=== PATIENT | male | born 1950 | race Caucasian/White ===

== ENCOUNTER 2024-10-18 10:34 | Outpatient (OUT) | payer OTHER, SELFPAY ==
--- NOTE | 2024-10-18 | XR_ITS ---
[facility] [place] [id number] Patient Name: EMILE RAYMOND MRN: [id number] date: 1950 Sex: M Assigned Patient Location: [facility] Current Patient Location: [facility] Accession/Order Number: [id number] Exam Date: 10/18/2024 11:12 Report Date: 10/18/2024 11:13 At the request of: MELISSA GARCIA Procedure: XR shoulder RT min 2V RIGHT SHOULDER - - 4 views CLINICAL HISTORY: M25.511 Right shoulder pain COMPARISON: None. FINDINGS: Mild degenerative changes involving the AC and glenohumeral joint narrowing of subacromial space suggestive of chronic rotator cuff pathology. XR/XR shoulder RT min 2V IMPRESSION: MILD DEGENERATIVE CHANGES INVOLVING THE RIGHT SHOULDER WITH EVIDENCE OF CHRONIC ROTATOR CUFF PATHOLOGY. Impression dictated by: Saulo Gonzales Jr., D.O. 10/18/2024 11:13 AM Dictation Location: [place] [address] Electronically authenticated by: [id number] Y Date: 10/18/2024 11:13
--- OUTSIDE RECORDS SUMMARY | 2024-10-18 10:36 | XMS_ITS | Encounter Summary ---
Author Organization [facility] Address [address] [place] [address] Phone Care Team Providers Care Software Writer Name Role Phone Teofilo Pichardo DO Primary Care Provider +1 -[phone] Encounter Details Date Type Department Care Team (Late st Contact Info) Description 07/18/[address] [facility] [address] [place] [id number] Scanning, Generic Provider Social History Tobacco Use Types Packs/Day Years Used Date Smoking Tobacco: Former Cigarettes Smokeless Tobacco: Never Alcohol Use Standard Drinks/Week Comments Yes 0 (1 standard drink = 0.6 oz pur e alcohol) occassional Sex and Gender Information Value Date Recorded Sex Assigned at Not on file Legal Sex Male 2:21 AM EST Gender Identity Not on file Sexual Orientation Not on file documented as of this encounter Plan of Treatment Upcoming Encounters Date Type Department Care Team (Late Contact Info) Description 03/22/2025 2:50 PM EST Office Visit [facility] [address] [address] Alyssa Sanchez MD 703 [facility] 2, [facility] [address] [place] [address] documented as of this encounter Visit Diagnoses Not on filedocumented in this encounter Additional Health Concerns Assessment Noted Time A fall risk assessment has been complete d for the patient 02/01/2023 11:41 AM EST documented as of this encounter Care Teams Software Writer Relationship Specialty Start Date End Date Teofilo Pichardo DO [address] [facility] [place] [address] PCP - General 03/21/99 documented as of this encounter
--- OUTSIDE RECORDS SUMMARY | 2024-10-18 10:36 | XMS_ITS | Encounter Summary ---
Author Organization [facility] Address [address] [place] [address] Phone Care Team Providers Care Operations Planner Name Role Phone Teofilo Pichardo DO Primary Care Provider +1 -[phone] Encounter Details Date Type Department Care Team (Late st Contact Info) Description 10/09/2019 Orders Only [facility] [address] [place] [address] Conversion, Onbase Social History Tobacco Use Types Packs/Day Years Used Date Smoking Tobacco: Never Assessed Sex and Gender Information Value Date Recorded Sex Assigned at Not on file Legal Sex Male 2:21 AM EST Gender Identity Not on file Sexual Orientation Not on file documented as of this encounter Plan of Treatment Upcoming Encounters Date Type Department Care Team (Late st Contact Info) Description 03/22/2025 2:50 PM EST Office Visit [facility] [address] [address] Alyssa Sanchez MD 703 [facility] 2, [place] [place] [address] Scheduled Orders Name Type Priority Associated Diagnoses Orde r Schedule OUTSIDE LAB SCAN Lab Ordered: 10/09/2019 documented as of this encounter Visit Diagnoses Not on filedocumented in this encounter Care Teams Operations Planner Relationship Specialty Start Date End Date Teofilo Pichardo DO [address] [facility] [address] [place] [phone] PCP - General 03/21/99 documented as of this encounter
--- OUTSIDE RECORDS SUMMARY | 2024-10-18 10:36 | XMS_ITS | Encounter Summary ---
Author Organization [facility] Address [address] [place] [address] Phone Care Team Providers Care Varnish Filterer Name Role Phone Teofilo Pichardo DO Primary Care Provider +1 -[phone] Encounter Details Date Type Department Care Team (Late st Contact Info) Description 07/12/2019 Orders Only [facility] [address] [place] [address] Conversion, Onbase Social History Tobacco Use Types [...] Description 03/22/2025 2:50 PM EST Office Visit [facility] [address] [address] Alyssa Sanchez MD 703 [facility] 2, [address] [place] [address] Scheduled Orders Name Type Priority Associated Diagnoses Orde r Schedule OUTSIDE LAB SCAN Lab Ordered: 07/12/2019 documented as of this encounter Visit Diagnoses Not on filedocumented in this encounter Care Teams Varnish Filterer Relationship Specialty Start Date End Date Teofilo Pichardo DO [address] [facility] [place] [address] PCP - General 03/21/99 documented as of this encounter
--- OUTSIDE RECORDS SUMMARY | 2024-10-18 10:36 | XMS_ITS | Encounter Summary ---
Author Organization [facility] Address [address] [place] [address] Phone Care Team Providers Care Water Pump Operator Name Role Phone Teofilo Pichardo Primary Care Provider +1 [phone] Encounter Details Date Type Department Care Team (Late st Contact Info) Description 04/25/2023 Scanned Document [facility] [address] [place] [phone] Scanning, Generic Provider Social History Tobacco Use [...] Description 03/22/2025 2:50 PM EST Office Visit [facility] [address] [address] Alyssa Sanchez MD 703 [facility] 2, [address] [place] [address] Scheduled Orders Name Type Priority Associated Diagnoses Orde r Schedule PULMONARY FUNCTION TESTING PFT Ordered: 04/25/2023 documented as of this encounter Procedures Procedure Name Priority Date/Time Associated Diagnosis Comments OUTSIDE IMAGING SCAN 04/25/2023 documented in this encounter Results * OUTSIDE IMAGING SCAN (04/25/2023) Anatomical Region Laterality Modality Other Narrative 04/25/2023 Ordered by an unspecified provider. us Generic Provider Scanning OUTSIDE SCAN Final Result documented in this encounter Visit Diagnoses Not on filedocumented in this encounter Additional Health Concerns Assessment Noted Time A fall risk assessment has been complete d for the patient 02/01/2023 11:41 AM EST documented as of this encounter Care Teams Water Pump Operator Relationship Specialty Start Date End Date Teofilo Pichardo DO [address] [facility] [place] [address] PCP - General 03/21/99 documented as of this encounter
--- OUTSIDE RECORDS SUMMARY | 2024-10-18 10:36 | XMS_ITS | Encounter Summary ---
Author Organization [facility] Address [address] [place] [address] Phone Care Team Providers Care Associate Professor Of Kinesiology Name Role Phone Teofilo Pichardo DO Primary Care Provider +1 [phone] Encounter Details Date Type Department Care Team (Late st Contact Info) Description 04/21/2024 Scanned Document [facility] [address] [place] [phone] Scanning, Generic Provider Social History Tobacco Use [...] Description 03/22/2025 2:50 PM EST Office Visit [facility] [address] [address] Alyssa Sanchez MD 703 [facility] 2, [facility] [address] [place] [address] documented as of this encounter Visit Diagnoses Not on filedocumented in this encounter Additional Health Concerns Assessment Noted Time A fall risk assessment has been complete d for the patient 02/01/2023 11:41 AM EST documented as of this encounter Care Teams Associate Professor Of Kinesiology Relationship Specialty Start Date End Date Teofilo Pichardo DO [address] [facility] [place] [address] PCP - General 03/21/99 documented as of this encounter
--- OUTSIDE RECORDS SUMMARY | 2024-10-18 10:36 | XMS_ITS | Encounter Summary ---
Author Organization [facility] Address [address] [place] [address] Phone Care Team Providers Care Management Architect Name Role Phone Teofilo Pichardo DO Primary Care Provider +1 [phone] Encounter Details Date Type Department Care Team (Late st Contact Info) Description 07/18/2019 Orders Only [facility] [address] [place] [address] Conversion, Onbase Social History Tobacco Use Types [...] Description 03/22/2025 2:50 PM EST Office Visit [facility] [address] [address] Alyssa Sanchez MD 703 [facility] 2, [address] [place] [address] Scheduled Orders Name Type Priority Associated Diagnoses Orde r Schedule OUTSIDE LAB SCAN Lab Ordered: 07/18/2019 documented as of this encounter Visit Diagnoses Not on filedocumented in this encounter Care Teams Management Architect Relationship Specialty Start Date End Date Teofilo Pichardo DO [address] [facility] [place] [address] PCP - General 03/21/99 documented as of this encounter
--- OUTSIDE RECORDS SUMMARY | 2024-10-18 10:36 | XMS_ITS | Clinical Summary ---
Author Organization [facility] Address [address] [place] [address] Care Team Providers Care Sandwich And Drink Cart Operator Name Role Phone Teofilo Pichardo MD Primary Care Provider +1 -[phone] Allergies Active Allergy Reactions Criticality Noted Date Comments Pradeep Inhibitors Anaphylaxis,Dizziness High 10/10/2019 Dapagliflozin Low 01/19/2023 Other Reaction(s): Unknown Heparin Low 01/19/2023 Other Reaction(s): Unknown Other Reaction(s): Other (See Comments) Lisinopril 04/06/2023 Other Reaction(s): Swelling of Lip/Tongue/Throat Medications metoprolol tartrate (Lopressor) 100 MG tablet Take 100 mg by mouth in the morning and 100 mg in the evening. Active methIMAzole (Tapazole) 5 MG tablet Take 5 mg by mouth in the morning and 5 mg in the evening and 5 mg before bedtime. 3 Active magnesium oxide (Mag-Ox) 400 MG tablet 400 mg in the morning. Active Melatonin 10 MG capsule Take 10 mg by mouth at bedtime Active furosemide (Lasix) 40 MG tablet Take 40 mg by mouth in the morning. 3 Active Trulicity 0.75 MG/0.5ML solution pen-injector INJECT 1 SYRINGE SUBCUTANEOUSLY ONCE A WEEK 3 Active dilTIAZem CD (Cardizem CD) 180 MG 24 hr capsule Take 180 mg by mouth in the morning. 3 Active B Complex Vitamins (Vitamin B-Complex) tablet Take 1 tablet by mouth in the morning. Active Eliquis 5 MG tablet Take 5 mg by mouth in the morning and 5 mg before bedtime. 3 Active amiodarone (Pacerone) 200 MG tablet Take 200 mg by mouth in the morning. 3 Active Garlic 2 MG capsule Take by mouth Active methylPREDNISo lone (Medrol Dospak) 4 MG tablets PRN 4 Active Multiple Vitamin (MULTIVITAMIN ADULT PO) 1 tablet 4 Active Active Problems Problem Noted Date Diagnosed Date Adenomatous polyp of cecum 04/26/2023 Positive colorectal cancer screening using Colog uard test 03/10/2023 Family History Medical History Relation Name Comments Heart disease Brother 1 Ryder Hypertension Brother 2 Vernon Mental illness Sister Ashley Relation Name Status Comments Brother 1 Ryder Brother 2 Vernon Father Mother Sister Ashley Social History Tobacco Use Types Packs/Day Years Used Date Smoking Tobacco: Former Cigarettes 1 28 0 07/23/1969 - 07/23/1997 Smokeless Tobacco: Never Comments:Stopped smoking 12 years ago >10 years since last smoked Alcohol Use Standard Drinks/Week Comments Yes 1 (1 standard drink = 0.6 oz pur e alcohol) Once per 30-60 days. AUDIT-C Answer Date Recorded Q1: How often do you have a drink containing alc ohol? Monthly or less 03/09/2023 Q2: How many drinks containi ng alcohol do you have on a typical day when you are drinking? 1 or 2 03/09/2023 Q3: How often do you have si x or more drinks on one occasion? Less than monthly 03/09/2023 Sex and Gender Information Value Date Recorded Sex Assigned at Male 02/21/2023 5:07 PM EST Legal Sex Male 6:35 PM EDT Gender Identity Male 02/21/2023 5:07 PM EST Sexual Orientation Straight 02/21/2023 5: 07 PM EST Last Filed Vital Signs Vital Sign Reading Time Taken Comments Blood Pressure 130/74 03/10/2023 1:23 PM EST Pulse - - Temperature - - Respiratory Rate - - Oxygen Saturation - - Inhaled Oxygen Concentration - - Weight 115 kg (254 lb) 04/26/2023 9:16 AM EST Height 180.3 cm (5' 11 ) 04/26/2023 9:16 AM EST Body Mass Index 35.43 04/26/2023 9:16 AM EST Plan of Treatment Not on file Insurance [employer] Care Teams Sandwich And Drink Cart Operator Relationship Specialty Start Date End Date Teofilo Pichardo MD PCP - General Family Medicine 02/28/23
--- OUTSIDE RECORDS SUMMARY | 2024-10-18 10:36 | XMS_ITS | Encounter Summary ---
Author Organization [facility] Address [address] [place] [address] Phone Care Team Providers Care Laundry Superintendent Name Role Phone Teofilo Pichardo Primary Care Provider +1 -[phone] Encounter Details Date Type Department Care Team (Late st Contact Info) Description 05/19/2024 Scanned Document [place] [address] [place] [phone] Scanning, Generic Provider Social History Tobacco Use [...] Description 03/22/2025 2:50 PM EST Office Visit [facility] [address] [address] Alyssa Sanchez MD 703 [facility] 2, [address] [place] [address] documented as of this encounter Procedures Procedure Name Priority Date/Time Associated Diagnosis Comments OUTSIDE IMAGING SCAN 05/19/2024 documented in this encounter Results * OUTSIDE IMAGING SCAN (05/19/2024) Anatomical Region Laterality Modality Other Narrative 05/19/2024 Ordered by an unspecified provider. us Generic Provider Scanning OUTSIDE SCAN Final Result documented in this encounter Visit Diagnoses Not on filedocumented in this encounter Additional Health Concerns Assessment Noted Time A fall risk assessment has been complete d for the patient 02/01/2023 11:41 AM EST documented as of this encounter Care Teams Laundry Superintendent Relationship Specialty Start Date End Date Teofilo Pichardo DO [address] [facility] [place] [address] PCP - General 03/21/99 documented as of this encounter
--- OUTSIDE RECORDS SUMMARY | 2024-10-18 10:36 | XMS_ITS | Encounter Summary ---
Author Organization [facility] Address [address] [place] [address] Phone Care Team Providers Care Certified Juvenile Probation Officer Name Role Phone Teofilo Pichardo DO Primary Care Provider +1 -[phone] Encounter Details Date Type Department Care Team (Late st Contact Info) Description 07/13/2019 Orders Only [facility] [address] [place] [address] Conversion, Onbase Social History Tobacco Use Types [...] Description 03/22/2025 2:50 PM EST Office Visit [facility] [address] [address] Alyssa Sanchez MD 703 [facility] 2, [address] [place] [address] Scheduled Orders Name Type Priority Associated Diagnoses Orde r Schedule OUTSIDE LAB SCAN Lab Ordered: 07/13/2019 documented as of this encounter Visit Diagnoses Not on filedocumented in this encounter Care Teams Certified Juvenile Probation Officer Relationship Specialty Start Date End Date Teofilo Pichardo DO [address] [facility] [address] [place] [address] PCP - General 03/21/99 documented as of this encounter
--- OUTSIDE RECORDS SUMMARY | 2024-10-18 10:36 | XMS_ITS | Clinical Summary ---
Author Organization [facility] tem Address [id number] [place] [address] Care Team Providers Care Strap Stitcher Name Role Phone Kylee Teofilo Annabella PETERSEN Primary Care Provider +1 -[phone] Allergies Active Allergy Reactions Criticality Noted Date Comments Heparin Other (See Comments) Low 01/19/2023 Other Reaction(s): Unknown Lisinopril 10/10/2019 Medications THERAPEUTIC-M VITAMIN/MINERAL S 27-0.4 mg tablet TAKE 1 TABLET BY MOUTH IN THE MORNING 07/26/2019 Active amiodarone (PACERONE) 200 mg tablet Take 200 mg by mouth 2 (two) times a day. 08/03/2019 Active ELIQUIS 5 mg tablet Take 5 mg by mouth 2 (two) times a day. 07/30/2019 Active metoprolol tartrate (LOPRESSOR) 100 mg tablet Take 100 mg by mouth 2 (two) times a day. 07/30/2019 Active omeprazole (PriLOSEC) 40 mg capsule TAKE 1 CAPSULE BY MOUTH 30 MINUTES BEFORE MORNING MEAL ONCE DAILY 08/06/2019 Active aspirin 81 mg Take 81 mg by mouth 2 (two) times a week. Active GARLIC ORAL Take by mouth. 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 Hoarseness 10/10/2019 Encounters Date Type Department Care Team Description 08/22/2024 8:20 AM EDT - 08/22/2024 11:59 PM EDT Hospital Encounter [facility] - Radiology [address] [place] [address] Right shoulder pain, unspecified chronicity Discharge Disposition: Home 08/22/2024 Travel from Last 3 Months Social History Tobacco Use Types Packs/Day Years Used Date Smoking Tobacco: Never Smokeless Tobacco: Never Alcohol Use Standard Drinks/Week Comments Not Currently 0 (1 standard drink = 0.6 oz pur e alcohol) Childcare Answer Date Recorded Childcare Unknown 08/30/2018 Employment Answer Date Recorded Employment Unknown 08/30/2018 Purpose - Life Answer Date Recorded Purpose and direction in life Unknown Sex and Gender Information Value Date Recorded Sex Assigned at Not on file Legal Sex Male 11:22 AM EDT Gender Identity Not on file Sexual Orientation Not on file Last Filed Vital Signs Vital Sign Reading Time Taken Comments Blood Pressure 155/78 04/15/2023 4:55 PM EST Pulse 68 04/15/2023 4:55 PM EST Temperature 36.6 C (97.8 F) 04/15/2023 4:55 PM EST Respiratory Rate 18 04/15/2023 4:55 PM EST Oxygen Saturation 98% 04/15/2023 4:55 PM EST Inhaled Oxygen Concentration - - Weight 114.3 kg (252 lb) 04/15/2023 4:55 PM EST Height 180.3 cm (5' 11 ) 04/15/2023 4:55 PM EST Body Mass Index 35.15 04/15/2023 4:55 PM EST Plan of Treatment Health Maintenance Due Date Last Done Comments Depression Screening 1962 Tobacco Screening 1962 DTaP,Tdap and Td Vaccines (1 - Tdap) 1970 Zoster (Shingles) Vaccine (1 of 2) 2001 Fall Risk Screening 2016 Adult BMI Screening 04/15/2024 04/15/2023 Influenza Vaccine 11/19/2024 Medical Devices Not on file Procedures Procedure Name Priority Date/Time Associated Diagnosis Comments XR SHOULDER RT MIN 2 VWS Routine 08/22/2024 8:43 AM EDT Right shoulder pain, unspecified chronicity from Last 3 Months Results * X-ray shoulder right minimum 2 views (08/22/2024 8:43 AM EDT) Anatomical Region Laterality Modality MSK, Upper Extremities, Shoulder Right Computed Radiography 08/24/2024 7:33 AM EDT Narrative 08/24/2024 7:34 AM EDT XR SHOULDER RT MIN 2 VWS History: Right shoulder pain, unspecified chronicity Findings: There is grossly no fracture, dislocation, or destructive lesion. Impression: * No acute findings. 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 Impression: * No acute findings. Mild osteoarthritis glenohumeral joint with earlyosteophyte inferiorly humerus head Consider MR if you suspect occult internal derangement Finalized by Jai Seo MD on 08/24/2024 7:34 AM Teofilo Pichardo DO IMG DIAGNOSTIC IMAGING OR DERABLES Final Result from Last 3 Months Insurance MEDICARE [facility] Care Teams Strap Stitcher Relationship Specialty Start Date End Date Teofilo Pichardo DO [address] [place] [address] PCP - General Family Medicine 08/22/24
--- OUTSIDE RECORDS SUMMARY | 2024-10-18 10:36 | XMS_ITS | Encounter Summary ---
Author Organization [facility] Address [address] [place] [address] Phone Care Team Providers Care Cap Coverer Name Role Phone Teofilo Pichardo DO Primary Care Provider +1 -[phone] Encounter Details Date Type Department Care Team (Late st Contact Info) Description 08/06/2019 Orders Only [facility] [address] [place] [address] Conversion, Onbase Social History Tobacco Use Types [...] Description 03/22/2025 2:50 PM EST Office Visit [facility] [address] [address] Alyssa Sanchez MD 703 [facility] 2, [address] [place] [address] Scheduled Orders Name Type Priority Associated Diagnoses Orde r Schedule OUTSIDE LAB SCAN Lab Ordered: 08/06/2019 documented as of this encounter Visit Diagnoses Not on filedocumented in this encounter Care Teams Cap Coverer Relationship Specialty Start Date End Date Teofilo Pichardo DO [address] [place] [facility] [place] [address] PCP - General 03/21/99 documented as of this encounter
--- OUTSIDE RECORDS SUMMARY | 2024-10-18 10:36 | XMS_ITS | Encounter Summary ---
Author Organization [facility] Address [address] [place] [address] Phone Care Team Providers Care Gluer And Slicer Hand Name Role Phone Teofilo Pichadro DO Primary Care Provider +1 -[phone] Encounter Details Date Type Department Care Team (Late st Contact Info) Description 07/02/2019 Orders Only [facility] [address] [place] [address] Conversion, Onbase Social History Tobacco Use Types [...] Description 03/22/2025 2:50 PM EST Office Visit [facility] [address] [address] Alyssa Sanchez MD 703 [facility] 2, [address] [place] [address] Scheduled Orders Name Type Priority Associated Diagnoses Orde r Schedule OUTSIDE LAB SCAN Lab Ordered: 07/02/2019 documented as of this encounter Visit Diagnoses Not on filedocumented in this encounter Care Teams Gluer And Slicer Hand Relationship Specialty Start Date End Date Teofilo Pichardo DO [address] [facility] [address] [place] [address] PCP - General 03/21/99 documented as of this encounter
--- OUTSIDE RECORDS SUMMARY | 2024-10-18 10:36 | XMS_ITS | Encounter Summary ---
Author Organization [facility] Address [address] [place] [address] Phone Care Team Providers Care Demolition Engineer Name Role Phone Teofilo Pichardo Primary Care Provider +1 -[phone] Encounter Details Date Type Department Care Team (Late st Contact Info) Description 04/20/2024 Scanned Document [facility] [address] [place] [phone] Scanning, Generic Provider Social History Tobacco Use [...] Description 03/22/2025 2:50 PM EST Office Visit [facility] [address] [address] Alyssa Sanchez MD [address] [facility] 2, [address] [place] [address] documented as of this encounter Procedures Procedure Name Priority Date/Time Associated Diagnosis Comments OUTSIDE IMAGING SCAN 04/20/2024 documented in this encounter Results * OUTSIDE IMAGING SCAN (04/20/2024) Anatomical Region Laterality Modality Other Narrative 04/20/2024 Ordered by an unspecified provider. us Generic Provider Scanning OUTSIDE SCAN Final Result documented in this encounter Visit Diagnoses Not on filedocumented in this encounter Additional Health Concerns Assessment Noted Time A fall risk assessment has been complete d for the patient 02/01/2023 11:41 AM EST documented as of this encounter Care Teams Demolition Engineer Relationship Specialty Start Date End Date Teofilo Pichardo DO [address] [facility] [place] [address] PCP - General 03/21/99 documented as of this encounter
--- OUTSIDE RECORDS SUMMARY | 2024-10-18 10:36 | XMS_ITS | Encounter Summary ---
Author Organization [facility] Address [address] [place] [address] Phone Care Team Providers Care Chin Strap Cutter Name Role Phone Teofilo Pichardo DO Primary Care Provider +1 [phone] Encounter Details Date Type Department Care Team (Late st Contact Info) Description 08/28/2019 Orders Only [facility] [address] [place] [address] Conversion, Onbase Social History Tobacco Use Types [...] Description 03/22/2025 2:50 PM EST Office Visit [facility] [address] [address] Alyssa Sanchez MD 703 [facility] 2, [address] [place], [place] [phone] Scheduled Orders Name Type Priority Associated Diagnoses Orde r Schedule OUTSIDE LAB SCAN Lab Ordered: 08/28/2019 OUTSIDE LAB SCAN Lab Ordered: 08/28/2019 documented as of this encounter Visit Diagnoses Not on filedocumented in this encounter Care Teams Chin Strap Cutter Relationship Specialty Start Date End Date Teofilo Pichardo DO [address] [facility] [place] [phone] PCP - General 03/21/99 documented as of this encounter
--- OUTSIDE RECORDS SUMMARY | 2024-10-18 10:36 | XMS_ITS | Encounter Summary ---
Author Organization [facility] Address [address] [place] [address] Phone Care Team Providers Care Therapeutic Consultant Name Role Phone Teofilo Pichardo DO Primary Care Provider +1 [phone] Encounter Details Date Type Department Care Team (Late st Contact Info) Description 07/25/2019 Orders Only [facility] [address] [place] [address] Conversion, Onbase Social History Tobacco Use Types [...] Description 03/22/2025 2:50 PM EST Office Visit [facility] [address] [address] Alyssa Sanchez MD 703 [facility] 2, [address] [place] [address] Scheduled Orders Name Type Priority Associated Diagnoses Orde r Schedule OUTSIDE LAB SCAN Lab Ordered: 07/25/2019 documented as of this encounter Visit Diagnoses Not on filedocumented in this encounter Care Teams Therapeutic Consultant Relationship Specialty Start Date End Date Teofilo Pichardo DO [address] [facility] [place] [phone] PCP - General 03/21/99 documented as of this encounter
--- OUTSIDE RECORDS SUMMARY | 2024-10-18 10:36 | XMS_ITS | Encounter Summary ---
Author Organization [facility] Address [address] [place] [address] Phone Care Team Providers Care Desktop Support Consultant Name Role Phone Teofilo Pichardo Primary Care Provider +1 [phone] Reason for Visit * Reason Comments Med Refill Encounter Details Date Type Department Care Team (Late st Contact Info) Description 07/24/[address] [address] Alyssa Sanchez MD 703 [facility] 2, [address] [address] Benign essential hypertension; Paroxysmal atrial fibrillation (Multi) Social History Tobacco Use Types Packs/Day Years [...] Description 03/22/2025 2:50 PM EST Office Visit [address] [address] Alyssa Sanchez MD 703 [facility] 2, [address] [address] documented as of this encounter Visit Diagnoses Diagnosis Benign essential hypertension Essential hypertension, benign Paroxysmal atrial fibrillation (Multi) Atrial fibrillation documented in this encounter Additional Health Concerns Assessment Noted Time A fall risk assessment has been complete d for the patient 02/01/2023 11:41 AM EST documented as of this encounter Care Teams Desktop Support Consultant Relationship Specialty Start Date End Date Teofilo Pichardo DO [address] [place] [address] PCP - General 03/21/99 documented as of this encounter
--- OUTSIDE RECORDS SUMMARY | 2024-10-18 10:36 | XMS_ITS | Encounter Summary ---
Author Organization [facility] Address [id number] [place] [address] Care Team Providers Care Ladle Pourer Name Role Phone Teofilo Pichardo DO Primary Care Provider [phone] [phone] Encounter Details Date Type Department Care Team (Late st Contact Info) Description 10/15/2021 Orders Only [facility] [address] [place] [phone] External, Scanning Provider Social History Tobacco Use Types Packs/Day [...] as of this encounter Plan of Treatment Not on file documented as of this encounter Visit Diagnoses Not on filedocumented in this encounter Care Teams Ladle Pourer Relationship Specialty Start Date End Date Teofilo Pichardo DO [address] [place] [address] PCP - General Family Medicine 08/22/24 documented as of this encounter
--- OUTSIDE RECORDS SUMMARY | 2024-10-18 10:36 | XMS_ITS | Clinical Summary ---
Author Organization [facility] Address [address] [place] [address] Phone Care Team Providers Care Centerless Grinder Name Role Phone MattcemdreTeofilo salcido Primary Care Provider +1 -[phone] Allergies Active Allergy Reactions Criticality Noted Date Comments Pradeep Inhibitors Anaphylaxis High 01/19/2023 Dapagliflozin Unknown Low 01/19/2023 Heparin Unknown Low 01/19/2023 Medications acetaminophen (Tylenol) 500 mg tablet Take 1 tablet (500 mg) by mouth every 4 hours if needed. 0 Active fish oil concentrate (Memphis-3) 120-180 mg capsule Take 1 capsule (1 g) by mouth once daily. 0 Active Trulicity 0.75 mg/0.5 mL pen injector Inject 0.75 mg under the skin 1 (one) time per week. Active multivitamin (Multiple Vitamins) tablet Take 1 tablet by mouth once daily. 0 Active omeprazole (PriLOSEC) [address] capsule 1 capsule (40 mg). Take 1 capsule 3 times a week 2 Active vitamin B complex (Vitamins B Complex) tablet Take 1 tablet by mouth once daily. Active dilTIAZem CD (Cardizem CD) 180 mg 24 hr capsuleIndication s:Benign essential hypertension,Atri al fibrillation, unspecified type (Multi) Take 1 capsule (180 mg) by mouth once daily. 90 capsule 3 4 01/13/20 25 Active Eliquis 5 mg tabletIndications :Paroxysmal atrial fibrillation (Multi) Take 1 tablet (5 mg) by mouth 2 times a day. 180 tablet 3 4 02/07/20 25 Active methIMAzole (Tapazole) 5 mg tabletIndications :Hyperthyroidism Take 1 tablet (5 mg) by mouth 2 times a day. 180 tablet 3 4 02/09/20 25 Active metoprolol tartrate (Lopressor) 100 mg tabletIndications :Benign essential hypertension,Paro xysmal atrial fibrillation (Multi) Take 1 tablet by mouth twice daily 180 tablet 5 Active amiodarone (Pacerone) 200 mg tabletIndications :Paroxysmal atrial fibrillation (Multi) Take 1 tablet by mouth once daily 90 tablet 1 5 Active furosemide (Lasix) 20 mg tablet Take 1 tablet (20 mg) by mouth 2 times daily (morning and late afternoon). Active FERROUS SULFATE ORAL Take by mouth. Active Active Problems Problem Noted Date Diagnosed Date Former smoker 07/26/2023 Class 2 obesity without seri ous comorbidity with body mass index (BMI) of 35.0 to 35.9 in adult 02/01/2023 High risk medication use 02/01/2023 Atrial fibrillation (Multi) 01/19/2023 Benign essential hypertension 01/19/2023 CKD (chronic kidney disease), stage III (Multi) 01/19/2023 COVID-19 01/19/2023 Diabetes (Multi) 01/19/2023 Obstructive sleep apnea syndrome 01/19/2023 Encounters Date Type Department Care Team Description 08/09/[address] [address] Shereen Roman RN Results 08/08/2024 10:10 AM EDT Office Visit [address] [address] Alyssa Sanchez MD Paroxysmal atrial fibrillation (Multi); High risk medication use; Benign essential hypertension; Stage 3 chronic kidney disease, unspecified whether stage 3a or 3b CKD (Multi); Obstructive sleep apnea syndrome; Former smoker; Class 2 obesity without serious comorbidity with body mass index (BMI) of 35.0 to 35.9 in adult, unspecified obesity type 08/08/2024 Orders Only [facility] [address] [place] [address] Alyssa Sanchez MD 08/08/2024 Travel 08/05/[address] [address] Alyssa Sanchez MD Paroxysmal atrial fibrillation (Multi) 07/24/[address] [address] Alyssa Sanchez MD Benign essential hypertension; Paroxysmal atrial fibrillation (Multi) 07/23/[address] [address] Alyssa Sanchez MD Benign essential hypertension; Paroxysmal atrial fibrillation (Multi) from Last 3 Months Immunizations Immunization Administration Dates Next Due Pneumococcal conjugate vaccine, 13-valent (PREVN AR 13) 11/14/2019 Pneumococcal polysaccharide vaccine, 23-valent, age 2 years and older (PNEUMOVAX 23) 11/25/2020 Social History Tobacco Use Types Packs/Day Years Used Date Smoking Tobacco: Former Cigarettes Smokeless Tobacco: Never Tobacco Cessation:Counseling Given: Not Answered Alcohol Use Standard Drinks/Week Comments Yes 0 (1 standard drink = 0.6 oz pur e alcohol) rare Sex and Gender Information Value Date Recorded Sex Assigned at Not on file Legal Sex Male 2:21 AM EST Gender Identity Not on file Sexual Orientation Not on file Last Filed Vital Signs Vital Sign Reading Time Taken Comments Blood Pressure 136/74 08/08/2024 10:31 AM EDT Pulse 57 08/08/2024 10:31 AM EDT Temperature 36.6 C (97.9 F) 10/24/2019 1:21 PM EDT Respiratory Rate - - Oxygen Saturation - - Inhaled Oxygen Concentration - - Weight 114 kg (251 lb 3.2 oz) 08/08/2024 10:31 A M EDT Height 180.3 cm (5' 11 ) 08/08/2024 10:31 AM EDT Body Mass Index 35.04 08/08/2024 10:31 AM EDT Plan of Treatment Upcoming Encounters Date Type Department Care Team (Late st Contact Info) Description 03/22/2025 2:50 PM EST Office Visit [address] [phone] Alyssa Sanchez MD [address], [address] [place] [address] Health Maintenance Due Date Last Done Comments CT Colonography 1951 Creatinine Level 1951 Diabetes: Hemoglobin A1C 1951 Diabetes: Urine Protein Screening 1951 FIT 1951 Lipid Panel 1951 Potassium Level 1951 Sigmoidoscopy 1951 TSH Level 1951 Yearly Adult Physical 1950 MMR Vaccines (1 of 1 - Standard series) 1952 Diabetes: Retinopathy Screening 1961 Hepatitis C Screening 1969 Hepatitis A Vaccines (1 of 2 - Risk 2-dose series) 1970 DTaP/Tdap/Td Vaccines (1 - Tdap) 1973 Zoster Vaccines (1 of 2) 2001 Hepatitis B Vaccines (1 of 3 - Risk 3-dose series) 2011 RSV High Risk: (Elderly (60+ ) or Population) (1 - Risk 60-74 years 1-dose series) 2011 Abdominal Aortic Aneurysm (AAA) Screening 2016 Echocardiogram 10/13/2022 10/13/2021, 08/01/2019 COVID-19 Vaccine (1 - 2023-2 5 season) 2023 Influenza Vaccine (#1) 2024 FIT-DNA (Cologuard) 02/03/2026 02/03/2023, 12/10/2019 Colonoscopy 04/18/2033 04/18/2023 Colorectal Cancer Screening 04/18/2033 Pneumococcal Vaccine Completed 11/25/2020, 11/14/2019 HIB Vaccines Aged Out No longer eligi ble based on patient's age to complete this topic HPV Vaccines Aged Out No longer eligi ble based on patient's age to complete this topic IPV Vaccines Aged Out No longer eligi ble based on patient's age to complete this topic Meningococcal Vaccine Aged Out No rosa nadia eligible based on patient's age to complete this topic Rotavirus Vaccines Aged Out No longer eligible based on patient's age to complete this topic Procedures Procedure Name Priority Date/Time Associated Diagnosis Comments [facility] THYROID STIMULATING HORMONE Routine 08/08/2024 12:00 PM EDT NON[facility] TRIIODOTHYRONINE (T3) TOTAL Routine 08/08/2024 12:00 PM EDT [facility] FREE T4 (FREE THYROXINE) Routine 08/08/2024 12:00 PM EDT ECG 12-LEAD Routine 08/08/2024 10:10 AM EDT Paroxysmal atrial fibrillation (Multi) ECHOCARDIOGRAM 10/13/2021 from Last 3 Months or Most Recently Relevant to Health Maintenance Results * [facility] Triiodothyronine (T3) Total (08/08/2024 12:00 PM EDT) [facility] Triiodothyronine (T3) Total 0.97 0.87 - 1.78 ng/mL [facility] Plasma specimen or serum specimen or whole blood specimen 08/08/2024 12:00 PM EDT us Alyssa Sanchez MD LAB BLOOD ORDERABLES Final R esult [facility] [address] [place] [address], [facility] [address] [place] [address] * (ABNORMAL) [facility] Thyroid Stimulating Hormone (08/08/2024 12:00 PM EDT) [facility] Thyroid Stimulating Hormone 6.08(H) 0.45 - 5.33 u[iU]/mL [facility] Comment:PERFORMED BY:[facility] [place], [place] [id number] MEDICAL DIRECTORMOHAMED M EL-FAKHARANY M.D. [facility] Plasma specimen or serum specimen or whole blood specimen 08/08/2024 12:00 PM EDT Alyssa Sanchez MD LAB BLOOD ORDERABLES Final R esult Performing Organization Address City/[facility]/ZIP Co de Phone Number [address] [address], [facility] [address] [place] [address] * NON-[facility] Free T4 (Free Thyroxine) (08/08/2024 12:00 PM EDT) [facility] Signature NON-[facility] Free T4 (Free Thyroxine) 0.91 0.61 - 1.12 ng/dL [facility] Plasma specimen or serum specimen or whole blood specimen 08/08/2024 12:00 PM EDT us Alyssa Sanchez MD LAB BLOOD ORDERABLES Final R esult Performing Organization Address [facility] Co de Phone Number [facility] [address] [place] [address], [facility] [address] [place] [address] * ECG 12 Lead (08/08/2024 10:10 AM EDT) Narrative [facility] - 08/08/2024 4:09 PM EDT ECG reveals sinus bradycardia with first-degree AV block otherwise normal ECG. Alyssa Sanchez MD ECG ORDERABLES Final Result Performing Organization Address [facility] Co de Phone Number [facility] * ECHOCARDIOGRAM (10/13/2021) Narrative 10/13/2021 Ordered by an unspecified provider. us Onbase Conversion CV ECHO PROCEDURES Final Resul t from Last 3 Months or Most Recently Relevant to Health Maintenance Insurance [employer] Member Subscriber Plan / Payer (Ef fective 2020-Present) Name:Denys Gaspar Relation to Subscriber:Self Name:Denys Gaspar Payer ID:Not on file Group ID:[id number] Type:Not on file Address: [address] [place] [id number] [facility] MED Care Teams Centerless Grinder Relationship Specialty Start Date End Date Teofilo Pichardo DO [address] [facility] [place] [phone] PCP - General 03/21/99
--- OUTSIDE RECORDS SUMMARY | 2024-10-18 10:36 | XMS_ITS | Encounter Summary ---
Author Organization [facility] Address [address] [place] [address] Phone Care Team Providers Care Wool Mixer Name Role Phone Teofilo Pichardo DO Primary Care Provider +1 -[phone] Encounter Details Date Type Department Care Team (Late st Contact Info) Description 07/17/2019 Orders Only [facility] [address] [place] [address] Conversion, Onbase Social History Tobacco Use Types [...] Description 03/22/2025 2:50 PM EST Office Visit [facility] [address] [address] Alyssa Sanchez MD 703 [facility] 2, [address] [place] [address] Scheduled Orders Name Type Priority Associated Diagnoses Orde r Schedule OUTSIDE LAB SCAN Lab Ordered: 07/17/2019 documented as of this encounter Visit Diagnoses Not on filedocumented in this encounter Care Teams Wool Mixer Relationship Specialty Start Date End Date Teofilo Pichardo DO [address] [facility] [place] [phone] PCP - General 03/21/99 documented as of this encounter
--- OUTSIDE RECORDS SUMMARY | 2024-10-18 10:36 | XMS_ITS | Encounter Summary ---
Author Organization [facility] Address [address] [place] [address] Phone Care Team Providers Care A P Mechanic Name Role Phone Teofilo Pichardo DO Primary Care Provider +1 -[phone] Encounter Details Date Type Department Care Team (Late st Contact Info) Description 07/15/2019 Orders Only [facility] [address] [place] [address] Conversion, Onbase Social History Tobacco Use Types [...] Description 03/22/2025 2:50 PM EST Office Visit [facility] [address] [address] Alyssa Sanchez MD 703 [facility] 2, [address] [place] [address] Scheduled Orders Name Type Priority Associated Diagnoses Orde r Schedule OUTSIDE LAB SCAN Lab Ordered: 07/15/2019 documented as of this encounter Visit Diagnoses Not on filedocumented in this encounter Care Teams A P Mechanic Relationship Specialty Start Date End Date Teofilo Pichardo DO [address] [facility] [place] [phone] PCP - General 03/21/99 documented as of this encounter
--- OUTSIDE RECORDS SUMMARY | 2024-10-18 10:36 | XMS_ITS | Encounter Summary ---
Author Organization [facility] Address [address] [place] [address] Phone Care Team Providers Care Service Desk Associate Name Role Phone Teofilo Pichardo DO Primary Care Provider +1 -[phone] Encounter Details Date Type Department Care Team (Late st Contact Info) Description 01/17/2023 Scanned Document [facility] [address] [place] [phone] Scanning, Generic Provider Social History Tobacco Use [...] Description 03/22/2025 2:50 PM EST Office Visit [facility] 703 [facility] [address] [place] [address] Alyssa Sanchez MD 703 [facility] 2, [address] [place] [address] documented as of this encounter Visit Diagnoses Not on filedocumented in this encounter Care Teams Service Desk Associate Relationship Specialty Start Date End Date Teofilo Pichardo DO [address] [facility] [place] [address] PCP - General 03/21/99 documented as of this encounter
== END 2024-10-18 10:35 | disposition home or self-care (01) ==
LOC: RAD 10:34
PROVIDERS: Visit Provider Physician Assistant
DX: M25.511 Pain in right shoulder (principal); G89.29 Other chronic pain
CPT/HCPCS: 73030